=== PATIENT | male | born 1935 | race Caucasian/White ===

== ENCOUNTER 2016-10-31 12:00 | Observation (INO) | payer OTHER ==
--- NOTE | 2016-10-31 12:10 | CPEKG ---
Heart Rate: 62 RR Interval: 968 P-R Interval: 248 QRSD Interval: 94 QT Interval: 460 QTC Interval: 468 P [place]: 0 QRS [place]: 19 T Wave [place]: 42 EKG Severity - ABNORMAL ECG - EKG Impression: SINUS RHYTHM EKG Impression: LONG R-R WITH VENTRICULAR ESCAPE EKG Impression: FIRST DEGREE AV BLOCK Electronically Signed By: Pj Barrera 31-Oct-2016 13:26:43
--- NOTE | 2016-10-31 12:14 | EDPHY ---
H & P HPI/ROS: Chief Complaint: Chest tightness, fatigue HPI: 80-year-old male with history of coronary artery disease status post stenting several years ago presenting with episodes of chest tightness over the last week. Patient normally bicycles of [employer] weekly. Patient was riding last Friday when he notice some mild chest discomfort when he was doing his ride was able to complete it. Patient went for a long 12 mi hike outside of yesterday but had worsening chest tightness and fatigue and had to stop the hike. He presented to Dr. Christine, cardiology office today for evaluation is noted to be bradycardic with a 2nd degree heart block and was brought to the emergency department. Plan is for the patient to go to [facility] for catheterization. He is currently without complaint. No recent illness. No fevers or chills. No nausea or vomiting. ROS: 10 point Review of Systems is negative except as noted in the HPI. PMH: Coronary artery disease status post stenting Medications: Aspirin, atorvastatin, lisinopril Allergies: No known drug allergies Social History: No smoking, no alcohol, no recreational drug use Family History: non-contributory Physical Exam: Gen: Awake, Alert, No Distress HEENT: Nose: no rhinorrhea Eyes: PERRLA, EOMI Mouth: Moist mucosa Neck: Supple, no JVD Chest: nontender, lungs clear to auscultation Heart: S1, S2 normal, no murmur, bradycardic Abd: Soft, non-tender, no guarding Back: no CVA tenderness, no midline tenderness Ext: no edema, non-tender Skin: no rash Neuro: CN II-XII intact, Sensation grossly intact, Strength 5/5 in bilateral upper and lower extremities - Medical/Surgical History Hx Asthma: No Hx Chronic Respiratory Disease: No Hx Diabetes: No Hx Cardiac Disease: Yes Hx Renal Disease: No Hx Cirrhosis: No Hx Alcoholism: No Hx HIV/AIDS: No Hx Splenectomy or Spleen Trauma: No Other PMH: colonic polyps; coronary arthrosclerosis with stent 2005, elevated PSA, HTN, kidney stones, leukocytopenia, thrombophlebitis of saphenous right vein, appendectomy, - Social History Smoking Status: Never smoked Allergies/Adverse Reactions: levofloxacin [From Levaquin] Allergy (Verified 06/18/13 12:24) loratadine [From Claritin] Allergy (Verified 06/18/13 12:24) Home Medications: Medication Instructions Recorded Aspirin [Aspirin 81mg (OTC)] 81 mg PO DAILY 08/26/11 Clopidogrel Bisulfate [Plavix (RX)] 0 mg PO DAILY 08/26/11 Lisinopril [Zestril 5 mg] 0 mg PO DAILY 08/26/11 Co Q-10 06/18/13 Fish Oil 06/18/13 Niacin 06/18/13 VITAMIN C 06/18/13 Viagra 06/18/13 Atorvastatin Calcium [Lipitor 10 10 mg PO DAILY 05/27/14 mg (RX)] Medical Decision Making - Diagnostics EKG Interpretation: Sinus bradycardia, with second-degree heart block. No acute ST or T-wave changes. ED Course/Re-evaluation: Case discussed with Dr. Clark, cardiology. Patient will go to the quality assurance lab technician at [facility]. Patient will be admitted to a PCU bed. Patient shows no new ischemic changes on his ECG acutely at this time. Is bradycardic it but asymptomatic. Departure - Departure Disposition: [facility] Acute Clinical Impression: Bradycardia, Chest pain, Heart block Condition: Fair
[2016-10-31 12:20] LABS: % IMMATURE GRANULYOCYTES 0.2 % (0.0-1.1); ABSOLUTE IMMATURE GRANULOCYTES 0.01 10^3/uL (0.00-0.10); ADD DIFF? NO; ADD MORPH? NO; ADD SCAN? NO; ATYPICAL LYMPHOCYTE FLAG 10 (0-99); FRAGMENT RBC FLAG 0 (0-99); HEMATOCRIT 44.2 % (40.0-51.0); HEMOGLOBIN 15.2 g/dL (13.7-17.5); LEFT SHIFT FLG 0 (0-99); LIPEMIA HEMOLYSIS FLAG 90 (0-99); MEAN CELL HEMOGLOBIN 32.8 pg (27.9-34.1); MEAN CELL HEMOGLOBIN CONCENTR. 34.4 g/dL (32.4-36.7); MEAN CELL VOLUME 95.5 fL (81.5-99.8); MEAN PLATELET VOLUME 10.5 fL (8.7-11.7); PLATELET CLUMPS FLAG 0 (0-99); PLATELET COUNT 184 10^3/uL (150-400); RED BLOOD CELL COUNT 4.63 10^6/uL (4.40-6.38); RED CELL DISTRIBUTION WIDTH 13.3 % (11.5-15.2)
[2016-10-31 12:33] LABS: INR 0.91 (0.83-1.16)
[2016-10-31 12:38] LABS: ALANINE AMINOTRANSFERASE 35 IU/L (21-72); ALBUMIN 4.5 g/dL (3.5-5.0); ALKALINE PHOSPHATASE 73 IU/L (38-126); ANION GAP 15 mEq/L (8-16); ASPARTATE AMINOTRANSFERASE 41 IU/L (17-59); BILIRUBIN,TOTAL 0.6 mg/dL (0.1-1.4); CALCIUM 9.3 mg/dL (8.5-10.4); CARBON DIOXIDE 23 mEq/l (22-31); CHLORIDE 104 mEq/L (97-110); CREATININE 0.9 mg/dL (0.7-1.3); GLOMERULAR FILTRATION RATE > 60; GLUCOSE 97 mg/dL (70-100); POTASSIUM 4.2 mEq/L (3.5-5.2); SODIUM 142 mEq/L (134-144); TOTAL PROTEIN 7.6 g/dL (6.3-8.2)
[2016-10-31 12:48] LABS: TROPONIN I 0.014 ng/mL (0-0.034)
[2016-10-31] MEDS ORDERED: MIDAZOLAM 2 MG/2 ML VIAL ONE ×2 (13:09→14:53)
[2016-10-31] MEDS ORDERED: LIDOCAINE 1% 300 MG/30 ML SDV ONE (13:09)
[2016-10-31] MEDS ORDERED: fentaNYL 100 MCG/2 ML INJ ONE ×2 (13:09→14:53)
[2016-10-31] MEDS ORDERED: HEPARIN 10,000 UNIT/10 ML MDV ONE (13:10)
[2016-10-31] MEDS ORDERED: VERAPAMIL 5 MG/2 ML VIAL ONE (13:10)
[2016-10-31] MEDS ORDERED: IOPAMIDOL (ISOVUE-370) 150 ML BTL IV ONE ×3 (13:10→15:24)
[2016-10-31] MEDS ORDERED: diphenhydrAMINE 25 MG CAP PO ONE ×2 (13:11→13:41)
[2016-10-31] MEDS ORDERED: FAMOTIDINE 20 MG TAB PO ONE (13:11)
[2016-10-31] MEDS ORDERED: NS 1,000 ML IV ONE (13:11)
[2016-10-31] MEDS ORDERED: ASPIRIN EC 325 MG TAB PO ONE ×2 (13:11→13:42)
[2016-10-31] MEDS ORDERED: DIAZEPAM 5 MG TAB PO ONE (13:11)
[2016-10-31] MEDS ORDERED: FAMOTIDINE 20 MG TAB ONE (13:41)
[2016-10-31] MEDS ORDERED: DIAZEPAM 5 MG TAB ONE (13:42)
[2016-10-31] MEDS ORDERED: BIVALIRUDIN 250 MG/5 ML VIAL IV ONE (14:18)
[2016-10-31] MEDS ORDERED: PRASUGREL HCL 10 MG TAB ONE (15:29)
[2016-10-31] MEDS ORDERED: ONDANSETRON 4 MG/2 ML VIAL IVP PRN (15:52)
[2016-10-31] MEDS ORDERED: LORazepam 2 MG/ML INJ IVP PRN (15:52)
[2016-10-31] MEDS ORDERED: OXYCODONE/APAP 5/325 TAB PO PRN (15:52)
[2016-10-31] MEDS ORDERED: TEMAZEPAM 15 MG CAP PO PRN (15:52)
[2016-10-31] MEDS ORDERED: NITROGLYCERIN 0.4 MG BTL SL PRN (15:52)
[2016-10-31] MEDS ORDERED: PRASUGREL HCL 10 MG TAB PO ONE (15:52)
[2016-10-31] MEDS ORDERED: HYDROCODONE/APAP 5/325 TAB PO PRN (15:52)
[2016-10-31] MEDS ORDERED: ATROPINE SULFATE 1 MG/10 ML SYR IVP PRN (15:52)
--- NOTE | 2016-10-31 16:03 | PDDXCAT ---
Diagnostic Cath Note - . 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 Subtotaled in mid section LCX: Mild nonobstructive atherosclerosis. RCA: Dominant: Mild luminal irregularities EDP: 12 mm of mercury LVEF: 65 percent Wall motion: None Complications: None Estimated blood loss: <100ml Closure method: Angioseal Assessment: Acute coronary syndrome with subtotal stenosis of the mid LAD and widely patent proximal stent. Normal left ventricular systolic function without regional wall motion abnormalities. Normal filling pressures. Plan: Urgent PCI of the LAD. Intervention: After reviewing diagnostic angiograms it was elected to proceed with urgent PCI. Patient was anticoagulated with Angiomax. Sheath was upsized to a 7 Australian. Initially attempts at intubated left main coronary with a 7 Australian JL 4.5 guiding catheter were made but failed. We upsized to a 7 Australian 3.5 Q. this allowed intubation of the left main coronary at an acute angle. Using a 0.014 luge wire the LAD stenosis was crossed and the wire placed in the distal vessel. The lesion was pre-dilated with a 2 mm balloon. Repeat angiograms revealed dinesh grade 3 flow. Attempts at crossing with a 2.5 by 24 mm synergy stent were made but failed. The wire and stent were prolapsed out of the coronary. At this point was elected to upsize the guide to a 7 Australian Q 4.0 guide. This fit better in the coronary. Using a 0.014 wiggle wire the LAD stenosis was crossed. Attempts at crossing the lesion with the stent again was attempted but failed. A 6 Australian GuideLiner was then used. Again the stent would not go in the entire system prolapsed out of the coronary. At this point time was elected to upsize to a 7 Australian Q 4.5 guiding catheter. This fit coaxial E in the left main coronary. Using is 0.014 luge wire the LAD stenosis was crossed. A 0.014 mailman wire was then used as a bryan. A 2.5 x 8 mm synergy stent was then placed on the wire. It did cross the proximal segment was placed at the culprit lesion. It was deployed using a single inflation. The Mailman wire was withdrawn. It then was used to reach cross through the stent. A 2nd 2.5 x 8 mm synergy stent was placed distally and deployed using a single inflation. The Mailman wire was withdrawn and then again prolapsed through the stents and a 2.5 x 16 mm synergy stent bridged the distance between the 2 stents. As it went in there was a hang up at the proximal stent edge. Orthogonal angiograms revealed a limited dissection. A 3.0 x 8 mm stent was placed proximally again using a bryan wire technique. Final orthogonal angiograms revealed DINESH grade 3 flow with resolution of dissection. Conclusions: Successful PCI and stenting of the LAD in the setting of acute coronary syndrome. Patient be continued on dual antiplatelet therapy for 1 year. Continue aggressive secondary prevention. During the course of the examination patient was in intermittent complete heart block. We will observe him on telemetry. Patient may need a pacemaker. Beta- meghan is contraindicated. Patient Problems: Problems Problem Status Onset Bradycardia Acute Chest pain Acute Heart block Acute
--- NOTE | 2016-10-31 16:06 | CPEKG ---
Heart Rate: 50 RR Interval: 1200 P-R Interval: 322 QRSD Interval: 100 QT Interval: 500 QTC Interval: 456 P [place]: 0 QRS [place]: 29 T Wave [place]: 56 EKG Severity - ABNORMAL ECG - EKG Impression: SINUS BRADYCARDIA EKG Impression: SINUS PAUSE/ARREST W/ SUPRAVENTRICULAR ESCAPE EKG Impression: FIRST DEGREE AV BLOCK EKG Impression: THERE ARE SALVOS OF SECOND DEGREE AVB (TYPE II) Electronically Signed By: Patricio Christine 31-Oct-2016 20:52:18
[2016-10-31] MEDS ORDERED: *HTN PROTOCOL*NITROGLYCERIN/DEXTR IV SCH (17:00)
[2016-10-31 20:01] LABS: CREATINE KINASE-MB FRACTION 1.79 ng/mL (0-3.19); TROPONIN I 0.038 ng/mL (0-0.034)
[2016-10-31 21:37] LABS: CREATINE KINASE-MB FRACTION 1.92 ng/mL (0-4.55); TROPONIN I 0.025 ng/mL (0-0.034)
[2016-10-31 22:23] LABS: CREATINE KINASE-MB FRACTION 1.68 ng/mL (0-3.19); TROPONIN I 0.079 ng/mL (0-0.034)
--- NOTE | 2016-11-01 00:40 | CPEKG ---
Heart Rate: 43 RR Interval: 1395 P-R Interval: 302 QRSD Interval: 90 QT Interval: 512 QTC Interval: 433 P [place]: -35 QRS [place]: 66 T Wave [place]: 70 EKG Severity - ABNORMAL ECG - EKG Impression: SINUS BRADYCARDIA, WENKEBACH PERIODICITY NOTED EKG Impression: ABERRANT COMPLEX, POSSIBLY SUPRAVENTRICULAR Electronically Signed By: Derick Sher 01-Nov-2016 08:00:22
[2016-11-01 02:15] LABS: CREATINE KINASE-MB FRACTION 1.77 ng/mL (0-3.19); TROPONIN I 0.131 ng/mL (0-0.034)
[2016-11-01 07:51] LABS: % IMMATURE GRANULYOCYTES 0.2 % (0.0-1.1); ABSOLUTE IMMATURE GRANULOCYTES 0.01 10^3/uL (0.00-0.10); ADD DIFF? NO; ADD MORPH? NO; ADD SCAN? NO; ATYPICAL LYMPHOCYTE FLAG 0 (0-99); FRAGMENT RBC FLAG 0 (0-99); HEMATOCRIT 39.1 % (40.0-51.0); HEMOGLOBIN 13.7 g/dL (13.7-17.5); LEFT SHIFT FLG 0 (0-99); LIPEMIA HEMOLYSIS FLAG 90 (0-99); MEAN CELL VOLUME 94.2 fL (81.5-99.8); MEAN PLATELET VOLUME 10.7 fL (8.7-11.7); PLATELET CLUMPS FLAG 0 (0-99); PLATELET COUNT 146 10^3/uL (150-400); RED BLOOD CELL COUNT 4.15 10^6/uL (4.40-6.38); RED CELL DISTRIBUTION WIDTH 13.2 % (11.5-15.2)
[2016-11-01 08:06] VITALS: BP 149/98; PULSE 52; RESP 20; TEMP 98.2; O2SAT 98
[2016-11-01 08:10] LABS: ALBUMIN 3.9 g/dL (3.5-5.0); ANION GAP 9 mEq/L (8-16); ASPARTATE AMINOTRANSFERASE 36 IU/L (17-59); BILIRUBIN,TOTAL 1.1 mg/dL (0.1-1.4); CARBON DIOXIDE 22 mEq/l (22-31); CHLORIDE 109 mEq/L (97-110); CHOLESTEROL 157 mg/dL (140-220); CHOLESTEROL/HDL RATIO 2.66 RATIO (1.00-4.97); CREATININE 0.9 mg/dL (0.7-1.3); GLOMERULAR FILTRATION RATE > 60; GLUCOSE 91 mg/dL (70-100); HIGH DENSITY LIPOPROTEIN 59 mg/dL (40-65); LACTATE DEHYDROGENASE 472 IU/L (313-618); LDL/HDL RATIO 1.39 RATIO (1.00-3.64); LOW DENSITY LIPOPROTEIN 82 mg/dL (80-100); MAGNESIUM 2.1 mg/dL (1.6-2.3); NON-HIGH DENSITY LIPOPROTEIN 98 mg/dL (90-129); POTASSIUM 4.5 mEq/L (3.5-5.2); SODIUM 140 mEq/L (134-144); TRIGLYCERIDE 83 mg/dL (40-150); VERY LOW DENSITY LIPOPROTEINS 16 mg/dL (8-25)
[2016-11-01 08:21] LABS: CREATINE KINASE-MB FRACTION 2.03 ng/mL (0-3.19); TROPONIN I 0.302 ng/mL (0-0.034)
[2016-11-01] MEDS ORDERED: BACITRACIN IRRIGATION/NS 50,000 UNITS/1,000 ML BTL IRR ONE (08:36)
[2016-11-01] MEDS ORDERED: diphenhydrAMINE 25 MG CAP PO ONE (08:36)
[2016-11-01] MEDS ORDERED: DIAZEPAM 5 MG TAB PO ONE (08:36)
[2016-11-01] MEDS ORDERED: NS 1,000 ML IV SCH (08:45)
[2016-11-01] MEDS ORDERED: ceFAZolin 2 GM/DEXTROSE 100 ML IV ONE (08:52)
[2016-11-01] MEDS ORDERED: PRASUGREL HCL 10 MG TAB PO SCH (09:00)
[2016-11-01] MEDS ORDERED: ASPIRIN EC 325 MG TAB PO SCH (09:00)
[2016-11-01] MEDS ORDERED: LISINOPRIL 20 MG TAB PO SCH (09:00)
[2016-11-01] MEDS ORDERED: ATORVASTATIN CALCIUM 40 MG TAB PO SCH (09:00)
[2016-11-01] MEDS ORDERED: LISINOPRIL 20 MG PO SCH (09:00)
--- NOTE | 2016-11-01 09:00 | CPEKG ---
Heart Rate: 47 RR Interval: 1277 P-R Interval: 267 QRSD Interval: 92 QT Interval: 475 QTC Interval: 420 P [place]: 0 QRS [place]: -12 T Wave [place]: 16 EKG Severity - ABNORMAL ECG - EKG Impression: BRADYCARDIA WITH IRREGULAR RATE 36-64 EKG Impression: FIRST DEGREE AV BLOCK EKG Impression: BORDERLINE T ABNORMALITIES, INFERIOR LEADS EKG Impression: THERE IS SECOND DEGREE TYPE II AVB ALSO NOTED IN THIS ECG Electronically Signed By: Patricio Christine 01-Nov-2016 10:11:53
[2016-11-01 10:42] LABS: HEMOGLOBIN A1C 5.6 % (4.0-6.0)
--- NOTE | 2016-11-01 11:08 | PDDCSUM ---
Discharge Summary Discharge Summary: Date of admission 10/31/2016, discharge date 11/01/2016 Admission diagnosis acute coronary syndrome. Discharge diagnosis same status post PCI and stenting of the LAD. Limited abscess below the left mandible. Hyperlipidemia. 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 Procedures done during this hospitalization left heart catheterization with stenting of the LAD. Consultation: Dr. Hanna Nichols for removal of limited abscess below the mandible. Medications: Please see attached sheet. Follow-up Eduardo 1 week, referral to cardiac rehabilitation. Hospital course: Patient was admitted to the hospital from [facility], patient was diagnosed with an acute coronary syndrome by my partner Patricio Christine. He is brought to the cardiac catheterization February is found have critical stenosis of the LAD. He underwent complex PCI and stenting. Procedure was notable for intermittent Wenckebach with high-degree AV block. Plan was to have a pacemaker inserted. Prior to insertion patient reported a mass below the mandible. This has intermittent exudate. Consultation by surgery was obtained. Plan is for this to be removed and treated prior to implantation of a permanent device. The patient is asymptomatic without syncope or near syncope. On the day of discharge patient's heart rate was 40, blood pressure 110/70 HEENT was significant for mass below the mandible. There is a marsupialized portion with crossed. I could not express any exudate. Chest was clear. Cardiac exam showed regular rate and rhythm. Puncture site was healing well without erythema or edema. Questions were answered with the patient is family. Will plan a follow up next week. Dr. Garcia will schedule further treatment for this mass. Clinical follow -up.
--- NOTE | 2016-11-05 11:37 | GCON ---
[f rep st] CONSULTATION DATE OF CONSULTATION: 11/01/2016 REFERRING PHYSICIAN: Beltran Clark MD REQUESTING PHYSICIAN: Beltran Clark MD CHIEF COMPLAINT: Left mandibular mass. HISTORY OF PRESENT ILLNESS: The patient is an 80-year-old man who was admitted due to chest tightne ss, and a stent was placed. He is on Brilinta and aspirin. He also has known second-degree heart b lock, and is being evaluated for pacemaker placement. On physical exam, Dr. Clark noticed a lesi on on his left jaw. The patient reports that it occasionally drains. He had it biopsied by a derma tologist, and it was negative for malignancy. It does not bother him. Due to the risk of infection to pacemaker, Dr. Clark asked me to evaluate it. PAST MEDICAL HISTORY: Coronary artery disease, hypertension, hyperlipidemia. MEDICATIONS: Include Brilinta, aspirin, atorvastatin, lisinopril. ALLERGIES: No known drug allergies. SOCIAL HISTORY: He is really active. He bicycles to [place] weekly. He denies alcohol, tobacco or recreational drug use. 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 FAMILY HISTORY: Noncontributory. REVIEW OF SYSTEMS: 10-point review of systems negative except per HPI. PHYSICAL EXAMINATION: GENERAL: Pleasant, well nourished, appears younger than stated age, sitting up in bed. VITAL SIGNS: 36.8, 52, 149/98, 20, 98% on 1 L. HEENT: Normocephalic. No gross hearin g deficits. Mucous membranes moist. Pupils equal and round. No scleral icterus. There is a lesio n on his left mandible that does not appear to be acutely inflamed or infected. There is no active drainage. LUNGS: Clear to auscultation bilaterally. No increased work of breathing. CARDIAC: Br adycardic. NEURO: Grossly intact. SKIN: Warm and dry. PSYCH: Mood and affect normal. IMPRESSION AND PLAN: The patient is an 80-year-old man with a lesion to his mandible. I believe th is represents an epidermal inclusion cyst. We will request the records from the on site coordinator and r eview them. I have discussed the case with Dr. Clark, and I do not believe that this is a huge r isk of creating infection with a pacemaker, however, since the pacemaker is permanent and risk with revision can be prevented, we would like to proceed with excising the lesion on his jaw first, since the pacemaker is not emergent. We will do this in the main operating room. He will be on Brilinta and aspirin. I have advised him that I would like him not to play his violin for at least a week a fter excision. We know that there may be a risk of infection and that the wound will have to be pac ked. There is certainly a small risk of bleeding. We will send the specimen to Pathology. We will request records from Dermatology. I have discussed the case in detail with Dr. Clark. Approximately 20 minutes was spent coordinating the care and [id number]. /[id number]/MODL
== END 2016-11-01 12:04 | disposition home or self-care (01) ==
LOC: CED 12:00 → FCATH 12:43 → INTOOBSV 12:44 → F2W 12:44
PROVIDERS: ADMIT Internal Medicine Interventional Cardiology; ATTEND Internal Medicine Interventional Cardiology
PROC: 4A023N7 Measurement of Cardiac Sampling and Pressure, Left Heart, Percutaneous Approach (ICD-10-PCS; principal; 2016-10-31)
PROC: 027035Z Dilation of Coronary Artery, One Artery with Two Drug-eluting Intraluminal Devices, Percutaneous Approach (ICD-10-PCS; principal; 2016-10-31)
PROC: B2111ZZ Fluoroscopy of Multiple Coronary Arteries using Low Osmolar Contrast (ICD-10-PCS; principal; 2016-10-31)
PROC: B2151ZZ Fluoroscopy of Left Heart using Low Osmolar Contrast (ICD-10-PCS; principal; 2016-10-31)
DX: I24.9 Acute ischemic heart disease, unspecified (principal); I44.1 Atrioventricular block, second degree; R00.1 Bradycardia, unspecified; M27.2 Inflammatory conditions of jaws; I25.10 Atherosclerotic heart disease of native coronary artery without angina pectoris; E78.5 Hyperlipidemia, unspecified; I10 Essential (primary) hypertension; Z87.442 Personal history of urinary calculi; Z95.5 Presence of coronary angioplasty implant and graft
CPT/HCPCS: 71010; 93005; 93458; 99285; C1725; C1769; C1874; C1887; C9600; G0378; J0583; J1644; J2250; J3010; Q9967; 80053-PO; 84484-PO; 85025-PO; 85610-PO; 85730-PO; J0461; J0690

== ENCOUNTER → 2016-10-31 | Outpatient (CLI) | payer OTHER | LOC: BHCLAF 11:30 | PROVIDERS: ATTEND Internal Medicine Cardiovascular Disease | DX: I25.10 Atherosclerotic heart disease of native coronary artery without angina pectoris (principal); I10 Essential (primary) hypertension; E78.5 Hyperlipidemia, unspecified; R00.1 Bradycardia, unspecified | CPT/HCPCS: 93005-PO ==

== ENCOUNTER 2016-11-07 06:00 | Day surgery (SDC) | payer OTHER ==
[2016-11-07] MEDS ORDERED: BUPIVACAINE 0.5% 30 ML SDV ONE (06:51)
[2016-11-07] MEDS ORDERED: PRASUGREL HCL 10 MG TAB PO ONE (07:00)
[2016-11-07] MEDS ORDERED: ASPIRIN 325 MG TAB PO ONE (07:00)
[2016-11-07] MEDS ORDERED: LIDOCAINE 1% 5 ML SDV ONE (07:03)
[2016-11-07] MEDS ORDERED: MIDAZOLAM 2 MG/2 ML VIAL ONE (07:12)
[2016-11-07] MEDS ORDERED: LIDOCAINE 2% 100 MG/5 ML SYR ONE (07:16)
[2016-11-07] MEDS ORDERED: PROPOFOL/EMULSION 500 MG/50 ML BOTTLE IV ONE (07:16)
[2016-11-07] MEDS ORDERED: fentaNYL 100 MCG/2 ML INJ ONE (07:16)
[2016-11-07] MEDS ORDERED: CEFAZOLIN 2 GM/DEXTROSE/100 ML BAG IV ONE (07:19)
[2016-11-07] MEDS ORDERED: LIDOCAINE 1% 300 MG/30 ML SDV ONE (07:24)
[2016-11-07] MEDS ORDERED: ceFAZolin 2 GM/DEXTROSE 100 ML IV ONE (07:30)
[2016-11-07] MEDS ORDERED: LR 1,000 ML IV ONE (08:21)
[2016-11-07] MEDS ORDERED: LIDOCAINE 1% 5 ML SDV ID PRN (08:21)
--- NOTE | 2016-11-07 09:04 | GOP ---
[f rep st] OPERATIVE REPORT DATE OF OPERATION: 11/07/2016 SURGEON: Hanna Nichols MD ANESTHESIA: Dr. Don Monterroso/monitored anesthesia care with IV sedation. PREOPERATIVE DIAGNOSIS: Cyst, left mandible. POSTOPERATIVE DIAGNOSIS: Cyst, left mandible. PROCEDURE PERFORMED: Excision of 2 cm cyst on left mandible. FINDINGS: Cyst on parotid gland. SPECIMENS: Cyst. ESTIMATED BLOOD LOSS: 10 cc. INDICATIONS: The patient is an 80-year-old man, who initially had an ingrown hair on his left raza ble. 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 He has had this biopsied, and not malignant. He needs a pacemaker for s econd-degree heart block, and concern was that this was draining and wanted this closed prior to golden cing pacemaker. DESCRIPTION OF PROCEDURE: The patient was brought into the operating room, placed supine on the tab le, and monitored anesthesia care with IV sedation was performed. His left neck was prepped and scottie ped in the usual sterile fashion. I infiltrated the area with 8 cc of 0.5% Marcaine mixed with 1% l idocaine, and made an ellipse around the cystic lesion. I dissected down through the subcutaneous t issues. It appeared to be attached in the parotid gland. I then had my colleague, Dr. Andujar, to c ome in to look at the dissection. I believe I was very superficial and not in danger of damaging th e marginal mandibular nerve or the facial nerve. I excised a small amount of tissue on the parotid sharply. Hemostasis was achieved. The wound was closed with 3-0 nylon. Antibiotic ointment and a sterile dressing were applied. He was awakened in the operating room, transferred to PACU in stable condition. /[id number]/MODL
== END 2016-11-07 09:35 | disposition home or self-care (01) ==
LOC: FSGY 06:00 → EDSTATUS 07:15 → FSGY 09:35 → PREOBSVTOIN 10:31
PROVIDERS: ATTEND Surgery
PROC: 0CB90ZX Excision of Left Parotid Gland, Open Approach, Diagnostic (ICD-10-PCS; principal; 2016-11-07 07:15)
DX: K11.6 Mucocele of salivary gland (principal); I44.1 Atrioventricular block, second degree
CPT/HCPCS: J0690; J2001; J2250; J2704; J3010

== ENCOUNTER → 2016-11-12 | Outpatient (CLI) | payer OTHER | LOC: BHFA 11:30 | PROVIDERS: ATTEND Internal Medicine Interventional Cardiology | DX: I44.2 Atrioventricular block, complete (principal) ==

== ENCOUNTER 2017-03-25 06:28 | Observation (INO) | payer OTHER ==
[2017-03-25] MEDS ORDERED: ceFAZolin 2 GM/SWFI 2 GM/20 ML SYR IVP ONE (06:31)
[2017-03-25] MEDS ORDERED: BACITRACIN IRRIGATION/NS 50,000 UNITS/1,000 ML BTL IRR ONE (06:31)
[2017-03-25] MEDS ORDERED: NS 1,000 ML IV ONE (06:31)
[2017-03-25] MEDS ORDERED: DIAZEPAM 5 MG TAB PO ONE (06:31)
[2017-03-25] MEDS ORDERED: diphenhydrAMINE 25 MG CAP PO ONE (06:31)
--- NOTE | 2017-03-25 06:47 | CPEKG ---
Heart Rate: 37 RR Interval: 1622 QRSD Interval: 98 QT Interval: 488 QTC Interval: 383 QRS [place]: -9 T Wave [place]: 68 EKG Severity - ABNORMAL ECG - EKG Impression: ATRIAL FIBRILLATION --NEW SINCE NOVEMBER 01, 2016 EKG Impression: NONSPECIFIC T ABNORMALITIES, LATERAL LEADS Electronically Signed By: Donato Calix 25-Mar-2017 11:59:38
[2017-03-25 07:01] LABS: % IMMATURE GRANULYOCYTES 0.2 % (0.0-1.1); ABSOLUTE IMMATURE GRANULOCYTES 0.01 10^3/uL (0.00-0.10); ADD DIFF? NO; ADD MORPH? NO; ADD SCAN? NO; ATYPICAL LYMPHOCYTE FLAG 20 (0-99); FRAGMENT RBC FLAG 0 (0-99); HEMATOCRIT 43.2 % (40.0-51.0); HEMOGLOBIN 15.3 g/dL (13.7-17.5); LEFT SHIFT FLG 0 (0-99); LIPEMIA HEMOLYSIS FLAG 90 (0-99); MEAN CELL HEMOGLOBIN 33.4 pg (27.9-34.1); MEAN CELL HEMOGLOBIN CONCENTR. 35.4 g/dL (32.4-36.7); MEAN CELL VOLUME 94.3 fL (81.5-99.8); MEAN PLATELET VOLUME 10.3 fL (8.7-11.7); PLATELET CLUMPS FLAG 0 (0-99); PLATELET COUNT 172 10^3/uL (150-400); RED BLOOD CELL COUNT 4.58 10^6/uL (4.40-6.38)
[2017-03-25 07:08] LABS: INR 0.99 (0.83-1.16)
[2017-03-25] MEDS ORDERED: ceFAZolin 2 GM in D5W 100 ML IV ONE (07:30)
[2017-03-25 07:43] LABS: ANION GAP 18 mEq/L (8-16); CALCIUM 9.6 mg/dL (8.5-10.4); CARBON DIOXIDE 25 mEq/l (22-31); CHLORIDE 100 mEq/L (97-110); CREATININE 0.9 mg/dL (0.7-1.3); GLOMERULAR FILTRATION RATE > 60; GLUCOSE 84 mg/dL (70-100); POTASSIUM 4.2 mEq/L (3.5-5.2); SODIUM 143 mEq/L (134-144)
--- NOTE | 2017-03-25 07:56 | PDPROPOC ---
Sedation Plan of Care Sedation Plan of Care: vital signs stable, mental status noted, patient educated of risks, benefits, alternatives, patient can tolerate sedation ASA Classification: ASA 2 Planned drugs: fentanyl, midazolam Mallampati Score: Class 1 Mallampati Reference Image: Patient passed 3-3-2 rule?: Yes
--- NOTE | 2017-03-25 07:56 | PDHPUP ---
History & Physical Update H&P update statement: This history and physical update is based on an assessment of the patient which was completed after admission or registration (within 24 hours), but prior to the surgery/procedure. H&P update: H&P reviewed & patient examined, no change in patient's condition since H&P completed (Discussed site, Plays violin. Left side device with lower position.)
[2017-03-25] MEDS ORDERED: LIDOCAINE 1% 300 MG/30 ML SDV ONE (08:17)
[2017-03-25] MEDS ORDERED: MIDAZOLAM 2 MG/2 ML VIAL ONE (08:17)
[2017-03-25] MEDS ORDERED: BUPIVACAINE 0.5% 30 ML SDV ONE (08:17)
[2017-03-25] MEDS ORDERED: fentaNYL 100 MCG/2 ML INJ ONE (08:17)
[2017-03-25] MEDS ORDERED: LIDO/EPI 1% **for epidural** 30 ML SDV ONE (08:17)
[2017-03-25] MEDS ORDERED: IOPAMIDOL (ISOVUE-300) 150 ML BTL ONE (08:18)
--- NOTE | 2017-03-25 09:22 | PDCTREPORT ---
Cardiothoracic Procedure Rpt Cardiothoracic Procedure Report: Procedure: Implantation of dual-chamber pacemaker. Indications: Fatigue with second-degree AV block. After obtaining informed consent patient brought to the cardiac catheterization lab. The left subclavian fossa was sterilely prepped and draped. Subclavian venogram was performed from the left side revealing widely patent vein. Using a 10 blade a 2 cm incision was made below the clavicle. Using a combination of sharp and blunt dissection pacemaker pocket was created. Hemostasis was achieved. Bacitracin soaked sponge was placed in the pocket. Using an 18 gauge percutaneous needle guide wires were advanced in the right heart x2. Using 6 Argentine safety she has, leads were advanced into the RV apex and right atrial appendage. Sheaths were torn away the leads were secured to the fascia after confirming appropriate sensitivities and thresholds. The right ventricular lead required repositioning. Bacitracin soaked sponge was removed from the pocket. It was copiously irrigated. Generator was delivered to the field. After confirming serial numbers, leads were attached to the generator. Set screws were tightened per industry standards. The system was coiled into the pocket. Using a 0 silk suture the device was secured to the fascia to prevent migration. Pacemaker pocket was closed using 2 Vicryl. Skin subcutaneous layer was closed using 3 0 Vicryl. Strata Fix was used to close the skin. For complete details of the procedure please see attached computer report. Pressure dressing was applied the patient is taken to recovery. Conclusions: Successful implantation of dual-chamber permanent pacemaker for second-degree AV block. The generator is a model number p.m. 2272, serial 7. [id number]. Right atrial lead is a model 2. 088 PC/46 serial number [id number] Right ventricular lead is a model 2. 088 PC 52 serial number [id number]. This is a MRI compatible device. Right atrial sensing was 5.2 mV with an impedance of 458 Ohms. Threshold was 0.5 volts with a pulse with 0.5 milliseconds. Right ventricular sensing was 9.1 mV with an impedance of 836 Ohms threshold was 0.6 volts with a pulse with a 0.5 milliseconds. Conclusions successful implantation of a DDDR pacer. This is an Assurity S URI TY MRI device. Patient Problems: Problems Problem Status Onset Bradycardia Acute Chest pain Acute Heart block Acute
--- NOTE | 2017-03-25 10:25 | CPEKG ---
Heart Rate: 92 RR Interval: 652 QRSD Interval: 126 QT Interval: 396 QTC Interval: 490 P [place]: 0 QRS [place]: -44 T Wave [place]: 126 EKG Severity - ABNORMAL ECG - EKG Impression: A-V DUAL-PACED COMPLEXES W/ SOME INHIBITION -- New since March 25, 2017, 6:45 Electronically Signed By: Donato Calix 25-Mar-2017 11:57:08
[2017-03-25] MEDS ORDERED: ACETAMINOPHEN 325 MG TAB ONE (15:05)
[2017-03-25] MEDS ORDERED: ACETAMINOPHEN 325 MG TAB PO PRN ×2 (15:24→20:04)
[2017-03-25] MEDS ORDERED: ASPIRIN 81 MG CHEWABLE TAB PO SCH ×2 (18:43→21:00)
[2017-03-25] MEDS ORDERED: CLOPIDOGREL BISULFATE 75 MG TAB PO SCH (19:00)
[2017-03-25] MEDS ORDERED: ONDANSETRON 4 MG/2 ML VIAL IVP PRN (20:04)
--- NOTE | 2017-03-25 20:49 | GHP ---
[f rep st] HISTORY AND PHYSICAL DATE OF ADMISSION: 03/25/2017 CHIEF COMPLAINT: Left-sided weakness. HISTORY: The patient is an 81-year-old male, who had a pacemaker placed by Dr. Clark this morning for second-degree heart block. He was being observed in CVC postprocedure and got up and was going to go home when suddenly he got very lightheaded and had a witnessed syncopal event. This was witnes sed by his nurse and his daughter. They got him back to the stretcher and noticed a significant left -sided facial droop as well as left leg and arm weakness that persisted about 5 minutes. An overhead stat stroke alert was called and by the time I arrived his neuro symptoms had all resolved. He was perhaps slightly less animated and mentally acute than he was earlier according to the nurse, but mos tly he had returned to normal. He has been holding his aspirin and Plavix for the last 2 days in pre paration for his pacemaker. He has otherwise recently been well without any complaints. PAST MEDICAL HISTORY: 1. Coronary artery disease, status post stent to the LAD, October 2016. 2. Second-degree heart block, status post pacemaker. 3. Hyperlipidemia. MEDICATIONS: Please see computer record for full detailed list. ALLERGIES: No known drug allergies. SOCIAL HISTORY: No smoking. He does drink daily a couple drinks. 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 He lives with his . He is very active at baseline, hiking couple times a week. REVIEW OF SYSTEMS: Complete review of systems obtained. Review of systems is negative regarding con stitutional, HEENT, GI, pulmonary, cardiovascular, , hematology, skin, musculoskeletal, endocrine, psych except for positives and negatives as noted in HPI. FAMILY HISTORY: Reviewed, noncontributory to presenting complaint. PHYSICAL EXAMINATION: GENERAL: Well-developed, well-nourished male, in no acute distress. VITAL SI GNS: Temp 36.6, pulse 69, blood pressure 129/86, saturating 99% on 3 L. EYES: Normal conjunctivae. Pupils react to light. ENT: Normal ears, nose. Hearing intact. Normal teeth. Oropharynx moist. NECK: Trachea midline. No thyromegaly. CHEST: Normal effort. LUNGS: Clear to auscultation bila terally. CARDIOVASCULAR: Regular rhythm. No murmur. No lower extremity edema. ABDOMEN: Soft, no ntender. No hepatosplenomegaly. SKIN: Warm, dry, intact. No rash. MUSCULOSKELETAL: No cyanosis or clubbing. Strength 5/5 upper and lower extremities. NEURO: Cranial nerves intact. Normal sensa tion to light touch. PSYCHIATRIC: Alert and oriented x3. Normal affect. Normal judgment. Normal memory. LABORATORY DATA: White count 4.22, hematocrit 43.2, platelets 172, sodium 143, potassium 4.2, chlori de 100, bicarb 25, BUN , creatinine 0.9, glucose 84. INR 0.99. Chest x-ray is negative. EKG pre pacemaker showed a second-degree heart block, post pacemaker showed paced rhythm. This case was discussed with Dr. Virgilio Valdez of Cardiology. He gave the green light to resume aspirin and Plavix this evening. ASSESSMENT/PLAN: 1. Transient ischemic attack. Patient has been holding his antiplatelets in preparation for pacemak er. I spoke with Dr. Valdez of Cardiology and he has cleared the patient to resume anti-platelet mounika tment tonight. CT scan of the head is negative for bleeding and CTA of the head and neck is negative for vascular stenosis. We will check an echocardiogram. We will check a lipid panel in the morning . We will put him on a transient ischemic attack protocol including Physical Therapy/Occupational Th erapy consultations in the morning. 2. Second-degree heart block, status post pacemaker. He has never previously had a documented histo ry of atrial fibrillation. Post pacemaker precautions to be instituted. 3. Coronary artery disease, status post recent stent to the left anterior descending in October 2016. For this indication he also requires ongoing Plavix administration. 4. Hyperlipidemia. He is on atorvastatin. We will recheck a lipid panel in the morning, with a goa l LDL of less than 70. COR STATUS: Full. ADMISSION STATUS: We will admit to observation as he might go home tomorrow depending clinical cours e. DEEP VENOUS THROMBOSIS PROPHYLAXIS: Given that we are restarting aspirin and Plavix so shortly after procedure, we will hold off on adding Lovenox as well. We will give him SCDs for DVT prophylaxis. /[id number]/MODL
[2017-03-25] MEDS ORDERED: LISINOPRIL 20 MG TAB PO SCH (21:00)
[2017-03-25] MEDS ORDERED: ATORVASTATIN CALCIUM 20 MG TAB PO SCH (21:00)
[2017-03-26 05:54] LABS: % IMMATURE GRANULYOCYTES 0.2 % (0.0-1.1); ABSOLUTE IMMATURE GRANULOCYTES 0.01 10^3/uL (0.00-0.10); ADD DIFF? NO; ADD MORPH? NO; ADD SCAN? NO; ATYPICAL LYMPHOCYTE FLAG 10 (0-99); FRAGMENT RBC FLAG 0 (0-99); HEMATOCRIT 42.8 % (40.0-51.0); HEMOGLOBIN 15.1 g/dL (13.7-17.5); LEFT SHIFT FLG 0 (0-99); LIPEMIA HEMOLYSIS FLAG 90 (0-99); MEAN CELL HEMOGLOBIN 33.3 pg (27.9-34.1); MEAN CELL HEMOGLOBIN CONCENTR. 35.3 g/dL (32.4-36.7); MEAN CELL VOLUME 94.5 fL (81.5-99.8); MEAN PLATELET VOLUME 10.7 fL (8.7-11.7); PLATELET CLUMPS FLAG 0 (0-99); PLATELET COUNT 152 10^3/uL (150-400); RED BLOOD CELL COUNT 4.53 10^6/uL (4.40-6.38); RED CELL DISTRIBUTION WIDTH 12.9 % (11.5-15.2)
[2017-03-26 05:57] LABS: ANION GAP 11 mEq/L (8-16); CALCIUM 9.1 mg/dL (8.5-10.4); CARBON DIOXIDE 22 mEq/l (22-31); CHLORIDE 107 mEq/L (97-110); CHOLESTEROL 173 mg/dL (140-220); CHOLESTEROL/HDL RATIO 2.98 RATIO (1.00-4.97); CREATININE 0.8 mg/dL (0.7-1.3); GLOMERULAR FILTRATION RATE > 60; GLUCOSE 101 mg/dL (70-100); HIGH DENSITY LIPOPROTEIN 58 mg/dL (40-65); LDL/HDL RATIO 1.66 RATIO (1.00-3.64); LOW DENSITY LIPOPROTEIN 96 mg/dL (80-100); NON-HIGH DENSITY LIPOPROTEIN 115 mg/dL (90-129); SODIUM 140 mEq/L (134-144); TRIGLYCERIDE 97 mg/dL (40-150); VERY LOW DENSITY LIPOPROTEINS 19 mg/dL (8-25)
[2017-03-26 06:07] LABS: TROPONIN I 0.335 ng/mL (0.000-0.034)
[2017-03-26 07:51] VITALS: RESP 16; TEMP 97.9
--- NOTE | 2017-03-26 10:18 | HOSPPROG ---
Hospitalist Progress Note Assessment/Plan: DIAGNOSES: -syncope with some brief L side weakness upon awakening, 03/25 (occurred hours after pacer placement) -s/p pacer yesterday -carotid atherosclerosis 60% at bilateral bulbs (known CAD) I examined and discussed events today with Estrella Conti Review of pacer/monitors did not show tachyarrythmia at time of event At this time I feel he likely had a syncope with resultant transient post ictal weakness. However given age would respond as if this were TIA in terms of preventive care. He clearly needs to continue platelet inhibitors and lipid/BP/sugar management, good exercise and diet as he has been doing I don't think his carotid disease warrants revasc attempts but should be followed and treated if progresses. There is no indication for anticoagulation I feel he can be DC'd home if cardiology feels he can go. 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: Paced with occasional PVC Exam: alert oriented Neurologic exam with no cranial nerve abnormalities, focal weakness, speech or language difficulties skin warm dry color ok resps not labored lungs clear BSs heart regular abd soft nondistended nontender, bowel sounds present limbs warm, no edema iv site ok Objective: Vital Signs Temp Pulse Resp BP Pulse Ox 36.6 C 64 16 111/86 H 96 03/26/17 07:42 03/26/17 07:42 03/26/17 07:42 03/26/17 07:42 03/26/17 07:42 Laboratory Results 03/26/17 05:30 03/26/17 05:30 03/25/17 03/26/17 03/27/17 06:59 06:59 06:59 Intake Total 400 Output Total 240 Balance 160 PT 13.0 SEC (12.0-15.0) 03/25/17 06:54 INR 0.99 (0.83-1.16) 03/25/17 06:54 ICD10 Worksheet Patient Problems: Problems Problem Status Onset Bradycardia Acute Chest pain Acute Heart block Acute
--- NOTE | 2017-03-26 12:46 | GDS ---
[f rep st] DISCHARGE SUMMARY PRIMARY ELEMENTARY SUPERVISOR: Beltran Calrk MD. DISCHARGE DIAGNOSES: 1. Second-degree heart block, status post dual-chamber [employer] pacemaker. 2. History of coronary artery disease. 3. History of hyperlipidemia. 4. Vasovagal event versus transient ischemic attack. 5. Moderate bilateral carotid disease. 6. Hypertension. HOSPITAL COURSE: For detailed H and P, please see prior dictation. Briefly, the patient is an 81-ye ar-old male who was identified to have profound second-degree AV block with bradycardia and heart rat es in the 20s on Holter monitor. He was complaining of progressive fatigue and an inability to exerc ise and therefore decided to proceed with an elective dual-chamber pacemaker. This was done by Dr. Christi Clark on 03/26/2017. He had a [employer]obe dual-chamber pacemaker placed. The procedure was un complicated and the patient was actually scheduled to go home later that day. Upon standing to leave , he became significantly lightheaded and experienced a true syncopal event. This was witnessed by andrew victor his nurse and daughter. When he came to, he had significant left-sided facial droop and left arm and leg weakness, which persisted for 5 minutes. A stroke alert was activated and Dr. Wellington evaluat ed the patient. By the time she reached the patient, his symptoms had resolved. A head CT, as well as head and neck CTA, were ordered. He was found to have moderate bilateral carotid disease of appro ximately 60%. 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 T he patient was kept 1 additional night. The following morning, he denied any neurological symptoms o r chest discomfort. His neuro exam was within normal limits. His device was interrogated the mornin g of discharge, and no tachyarrhythmias were identified. His device was working properly. PHYSICAL EXAMINATION: GENERAL: The patient appears in no acute distress. VITAL SIGNS: Blood press ure 111/86, heart rate 64, oxygen saturation 96% on room air, afebrile. CARDIAC: Regular rate and r hythm. CHEST WALL: His pacer site is clean and intact without any evidence of infection or hematoma . EXTREMITIES: No edema. DISCHARGE MEDICATIONS: His medications are unchanged. He will continue lisinopril 20 mg at bedtime, herbal supplement daily, Lipitor 20 mg daily, Plavix 75 mg daily, aspirin 81 mg daily, nitroglycerin p.r.n. for chest pain. PLAN: The patient is currently stable and ready for discharge home. He has been given pacer precaut ions. He will follow up as scheduled for a wound check and pacer interrogation on April 07 at 11 a .m. He likely had a vasovagal event but TIA cannot be ruled out. He will continue anti-platelet the rapy with Plavix and aspirin. He will also remain on statin therapy for carotid and coronary disease . His LDL is elevated at 96. Titration of his Lipitor will be discussed at his next office visit. Greater than 30 minutes was spent coordinating the patient's care and plan today. /[id number]/MODL
[2017-03-26 13:46] VITALS: BP 132/72; PULSE 78; O2SAT 97
--- NOTE | 2017-03-26 16:00 | ECHO ---
[email or web address] [address] [address] Main: [phone] Fax: [email or web address] Echocardiogram Name: TALA DERAS MR#: [id number] Study Date: 03/26/2017 Study Time: 09:02 AM Date of : 1935 Age: 81 year(s) Height: 182.9 cm (72 in.) Weight: 74.39 kg (164 lb.) BSA: 1.96 m2 Gender: Male Examination: Echo Indication: Post pacemaker, TIA Image Quality: Contrast: Requested by: Debbi Wellington BP: 151 mmHg/84 mmHg Heart Rate: Rhythm: Pacemaker rhythm Indication: Post pacemaker, TIA Procedure Staff Ear Nose And Throat Specialist: Ernie Rogers Reading Physician: Patricio Christine Requesting Provider: Conclusions: Normal size left ventricle. Normal global systolic LV function. EF is 65 %. Trivial mitral valve regurgitation. Measurements: Chambers Valvular Assessment AV/MV Valvular Assessment TV/PV Normal Normal Normal Name Value Range Name Value Range Name Value Range Ao Goldie (MM): 4.0 cm (2.2 cm-3.7 AV Vmax: 0.80 m/s (1 m/s-1.7 TR Vmax: 2.63 mm/s ( - ) cm) m/s) TR PGmax: 28 mmHg ( - ) IVSd (2D): 0.8 cm (0.6 cm-1.1 AV maxP mmHg ( - ) syst. PAP: 33 mmHg ( - ) cm) LVOT Vmax: 0.76 m/s (0.7 m/s-1.1 PV Vmax: 0.65 m/s (0.6 m/s-0.9 LVDd (2D): 3.8 cm (4.2 cm-5.9 m/s) m/s) cm) NELIA (Vmax): 3.0 cm2 ( - ) PV PGmax: 2 mmHg ( - ) LVDs (2D): 2.4 cm (2.1 cm-4 MV E Vmax: 0.65 m/s ( - ) cm) MV A Vmax: 0.38 m/s ( - ) LVPWd (2D): 1.2 cm (0.6 cm-1 MV E/A: 1.71 ( - ) cm) LVOTd 2.0 cm 2.0 cm mm LVEF (2D): 65 (>=54 %) Continued Measurements: Valvular Assessment TV/PV Name Value CVP (est.): 5 mmHg Patient: TALA DERAS Study Date: 03/26/2017 Page 1 of 2 09:02 AM Findings: Left Ventricle: Normal size left ventricle. No LV hypertrophy. Normal global systolic LV function. EF is 65 %. No regional wall motion abnormality. Right Ventricle: Normal size right ventricle. Normal RV function. There is a pacemaker lead noted in the right ventricle. Left Atrium: The left atrium is normal in size. Right Atrium: The right atrium is normal in size. Mitral Valve: The mitral valve is normal in appearance and function. Trivial mitral valve regurgitation. Aortic Valve: Mild aortic cusp calcification is noted. No aortic valve stenosis is present. Tricuspid Valve: The tricuspid valve is normal in appearance and function. There is no tricuspid valve regurgitation. Pulmonic Valve: The pulmonic valve is normal in appearance and function. Aorta: The aorta is normal. Pericardium: No pericardial effusion. Exam Comments: Echo images were performed from the subcostal view due to low heart window.. (No Signature Object) Patient: TALA DERAS Study Date: 03/26/2017 Page 2 of 2 09:02 AM [id number]
== END 2017-03-26 11:42 | disposition home or self-care (01) ==
LOC: FCATH 06:28 → F2W 18:25 → F2N 19:01
PROVIDERS: ADMIT Internal Medicine Interventional Cardiology; ATTEND Physician Assistant
PROC: 02HK3JZ Insertion of Pacemaker Lead into Right Ventricle, Percutaneous Approach (ICD-10-PCS; principal; 2017-03-25)
PROC: 0JH606Z Insertion of Pacemaker, Dual Chamber into Chest Subcutaneous Tissue and Fascia, Open Approach (ICD-10-PCS; principal; 2017-03-25)
PROC: 02H63JZ Insertion of Pacemaker Lead into Right Atrium, Percutaneous Approach (ICD-10-PCS; principal; 2017-03-25)
DX: I44.1 Atrioventricular block, second degree (principal); R53.83 Other fatigue; R55 Syncope and collapse; I65.23 Occlusion and stenosis of bilateral carotid arteries; I25.10 Atherosclerotic heart disease of native coronary artery without angina pectoris; E78.5 Hyperlipidemia, unspecified; I10 Essential (primary) hypertension; E03.9 Hypothyroidism, unspecified; Z79.02 Long term (current) use of antithrombotics/antiplatelets; Z85.828 Personal history of other malignant neoplasm of skin; Z87.891 Personal history of nicotine dependence; Z87.442 Personal history of urinary calculi; Z86.010 Personal history of colon polyps; Z82.49 Family history of ischemic heart disease and other diseases of the circulatory system; Z95.5 Presence of coronary angioplasty implant and graft
CPT/HCPCS: 33208; 70450; 70496; 70498; 71010; 71020; 75860; 93005; 93306; 97161; 97166; C1785; C1898; G8978; G8979; G8980; G8987; G8988; G8989; J0690; J2250; J3010; Q9967

== ENCOUNTER 2017-03-28 18:32 | Emergency (ER) | payer OTHER ==
--- NOTE | 2017-03-28 19:14 | EDPHY ---
H & P Time Seen by Provider: 03/28/17 19:02 HPI/ROS: CHIEF COMPLAINT: Constipation, inability to urinate HISTORY OF PRESENT ILLNESS: The patient is an 81 y/o male, 10 days post-op from a cardiac pacemaker, complaining of constipation and inability to urinate. Last normal bowel movement was several days ago. Having difficulty having a bowel since then. Onset of difficulty urinating this morning, associated with suprapubic discomfort. No medications tried for constipation. No prior history of urinary retention. Denies abdominal pain, chest pain, fever, paresthesias or other pertinent symptoms. REVIEW OF SYSTEMS: Aside from elements discussed in the HPI, a comprehensive 10-point review of systems was reviewed and is negative. Past Medical/Surgical History: PMH: Colonic polyps, coronary arthrosclerosis, hypertension, kidney stones, leukocytopenia PSH: Cardiac pacemaker 10 days ago, coronary stent, appendectomy Social History: at bedside, lives in [place], retired Smoking Status: Never smoked Physical Exam: General Appearance: Alert, appears in pain Eyes: Pupils equal and round, no conjunctival pallor or injection ENT, Mouth: Mucous membranes moist Neck: Normal inspection Respiratory: Lungs are clear to auscultation Cardiovascular: Regular rate and rhythm Gastrointestinal: Abdomen is soft, suprapubic tenderness Rectal: Brown stool, no fecal impaction Neurological: A&O, nonfocal, normal gait Skin: Warm and dry, no rash Extremities: Normal inspection Psychiatric: Mood and affect normal Constitutional: Initial Vital Signs Temperature (C) 36.7 C 03/28/17 18:44 Heart Rate 102 H 03/28/17 18:44 Respiratory Rate 22 H 03/28/17 18:44 Blood Pressure 163/98 H 03/28/17 18:44 O2 Sat (%) 93 03/28/17 18:44 O2 Delivery Mode Room Air Allergies/Adverse Reactions: No Known Allergies Allergy (Unverified 10/31/16 13:35) Home Medications: Medication Instructions Recorded Atorvastatin Calcium [Lipitor 20 20 mg PO HS 10/31/16 mg (*)] Herbals/Supplements -Info Only 1 ea PO DAILY 10/31/16 Lisinopril [Zestril 20 mg (*)] 20 mg PO HS 10/31/16 Aspirin [Aspirin 81mg (*)] 81 mg PO HS 03/20/17 Clopidogrel Bisulfate [Plavix (*)] 75 mg PO HS 03/20/17 Nitroglycerin [Nitrostat 0.4 mg 0.4 mg SL ONCE PRN 03/20/17 (*)] Medical Decision Making ED Course/Re-evaluation: The patient is an 81 y/o male, 10 days post-op from a cardiac pacemaker placement, presenting with constipation and inability to urinate. Patient will have a soap suds enema. 1955: Reassessed patient, he is able to have a moderate bowel movement after his enema. Feels better. 2004: Patient's bladder scan: 673mL. Able to urinate twice. 2022: Reassessed patient, he is no longer in pain. He still has the slight urge to urinate. 2099: Symptoms have resolved. Abdomen is soft and nontender. Return precautions provided; patient and his are comfortable with this plan. - Data Points Medications Given: Discontinued Medications Magnesium Citrate (Magnesium Citrate) 300 ml PO EDNOW ONE Stop: 03/28/17 20:26 Last Admin: 03/28/17 20:40 Dose: 1 btl Departure - Departure Disposition: Home, Routine, Self-Care Clinical Impression: Urinary retention Constipation Qualifiers: Constipation type: slow transit constipation Qualified Code(s): K59.01 - Slow transit constipation Condition: Good Instructions: Constipation (ED) Additional Instructions: Take magnesium citrate as prescribed. Follow up with your primary care provider in the next week for unimproved symptoms. Return to the ED if you experience abdominal pain, inability to urinate, vomiting, changes in bowel movements, fever or other pertinent symptoms. Referrals: Beltran Clark MD [Primary Care Provider] - As per Instructions Stand Alone Forms: Airline Excuse Report Scribed for: Veena Clifford Report Scribed by: Promise Simons Date of Report: 03/28/17 Time of Report: 19:13 Physician Review and Approval Statement: 03/28/17 19:14 Portions of this note were transcribed by a medical safety director. I personally performed a history, physical exam, medical decision making, and confirmed accuracy of information the transcribed note.
[2017-03-28] MEDS ORDERED: MAGNESIUM CITRATE 300 ML BOTTLE PO ONE (20:25)
[2017-03-28 21:14] VITALS: BP 156/87; PULSE 77; RESP 20; TEMP 98.8; O2SAT 94
== END 2017-03-28 22:08 | disposition home or self-care (01) ==
DX: K59.01 Slow transit constipation (principal); R33.9 Retention of urine, unspecified; I10 Essential (primary) hypertension; Z95.0 Presence of cardiac pacemaker; Z79.82 Long term (current) use of aspirin; Z95.5 Presence of coronary angioplasty implant and graft

== ENCOUNTER 2017-03-30 02:33 | Observation (INO) | payer OTHER ==
--- NOTE | 2017-03-30 02:54 | CPEKG ---
Heart Rate: 64 RR Interval: 938 P-R Interval: 180 QRSD Interval: 134 QT Interval: 440 QTC Interval: 454 P [place]: 0 QRS [place]: -86 T Wave [place]: 83 EKG Severity - ABNORMAL ECG - EKG Impression: VENTRICULAR-PACED COMPLEXES EKG Impression: NONSPECIFIC IVCD WITH LAD Electronically Signed By: Mary Da Silva 31-Mar-2017 07:00:55
[2017-03-30 03:06] LABS: PLATELET COUNT 147 10^3/uL (150-400)
--- NOTE | 2017-03-30 03:17 | EDPHY ---
H & P Stated Complaint: Chest pain/pressure Time Seen by Provider: 03/30/17 02:48 HPI/ROS: HPI The patient presents with chest pressure which he initially noticed and was mild before going to bed last night. He awoke about 1 hour prior to presentation with worsening chest pressure. He feels it throughout his anterior chest, does not radiate, it is mild in severity. It is worse when he sits forward or takes a deep breath. He has no associated nausea, vomiting, dizziness, diaphoresis. He has had dyspnea on exertion when he walks up 1 flight of stairs in his home, this is been present for the last 1 week since he had a pacemaker placed. He had a visit to the emergency room a few days ago for constipation. His symptoms of constipation have improved. He has no prior history of similar pain.. REVIEW OF SYSTEMS Constitutional: No fever, no chills. Eyes: No discharge. ENT: No sore throat. Cardiovascular: See HPI Respiratory: No cough, no shortness of breath. Gastrointestinal: No abdominal pain, no vomiting. Genitourinary: No hematuria. Musculoskeletal: No back pain. Skin: No rashes. Neurological: No headache. PMHx: CAD with LAD stent in place, recent pacemaker placement Soc Hx: Housed with his PHYSICAL General Appearance: Alert, no distress Eyes: Pupils equal and round no pallor or injection ENT, Mouth: Mucous membranes moist Chest wall: Surgical site dressing is clean dry and intact, there is surrounding ecchymoses Respiratory: There are no retractions, lungs are clear to auscultation Cardiovascular: Regular rate and rhythm Gastrointestinal: Abdomen is soft and non-tender, no masses, bowel sounds normal Neurological: A&O, moves all extremities Skin: Warm and dry, no rashes Musculoskeletal: Neck is supple non tender Extremities: symmetrical, full range of motion Psychiatric: Patient is oriented X 3, there is no agitation Source: Patient Exam Limitations: No limitations - Personal History Current Tetanus/Diphtheria Vaccine: Unsure Current Tetanus Diphtheria and Acellular Pertussis (TDAP): Unsure - Medical/Surgical History Hx Asthma: No Hx Chronic Respiratory Disease: No Hx Diabetes: No Hx Cardiac Disease: Yes Hx Renal Disease: No Hx Cirrhosis: No Hx Alcoholism: No Hx HIV/AIDS: No Hx Splenectomy or Spleen Trauma: No Other PMH: colonic polyps; coronary arthrosclerosis with stent 2004, elevated PSA, HTN, kidney stones, leukocytopenia, thrombophlebitis of saphenous right vein, appendectomy, - Social History Smoking Status: Never smoked Constitutional: Initial Vital Signs Temperature (C) 36.3 C 03/30/17 02:38 Heart Rate 64 03/30/17 02:38 Respiratory Rate 14 03/30/17 02:38 Blood Pressure 141/83 H 03/30/17 02:38 O2 Sat (%) 96 03/30/17 02:38 O2 Delivery Mode Room Air Allergies/Adverse Reactions: No Known Allergies Allergy (Unverified 10/31/16 13:35) Home Medications: Medication Instructions Recorded Atorvastatin Calcium [Lipitor 20 20 mg PO HS 10/31/16 mg (*)] Herbals/Supplements -Info Only 1 ea PO DAILY 10/31/16 Lisinopril [Zestril 20 mg (*)] 20 mg PO HS 10/31/16 Aspirin [Aspirin 81mg (*)] 81 mg PO HS 03/20/17 Clopidogrel Bisulfate [Plavix (*)] 75 mg PO HS 03/20/17 Medical Decision Making - Diagnostics EKG Interpretation: EKG: Complete interpretation has been separately recorded in the [facility] archive. Summary impression: Ventricular paced rhythm Imaging Results: Chest x-ray two view demonstrates pacer in place, no cardiomegaly, no effusion, interpreted by me, radiology interpretation is pending. CT scan of chest PE protocol demonstrates no pulmonary embolism, discussed with Dr. Avelar of Radiology. Differential Diagnosis: 81-year-old man, history of CAD status post LAD stent, recent cardiac pacemaker placed presents with chest pressure which has been present for the last several hours and awoke him from sleep. Pain is pressure like, throughout his chest, worse when he leans forward. On exam, he is generally well-appearing. Vital signs are unremarkable. In the emergency department, labs were checked and were unremarkable, EKG showed a paced rhythm. Chest x-ray was normal. D-dimer was added on and was elevated, thus CT scan of chest was performed and was unremarkable for PE. Given the patient has a history of CAD and chest pressure, I feel he should be monitored for repeat troponin and further testing if needed. I have discussed the case with the hospitalist Dr. Lang. Differential diagnosis considered includes ACS, PE, pericarditis, pleurisy. - Data Points Laboratory Results: Laboratory Results 03/30/17 03:00 03/30/17 03:00 03/30/17 03/30/17 03/30/17 04:00 03:00 03:00 WBC 5.57 10^3/uL 10^3/uL (3.80-9.50) RBC 4.16 10^6/uL L 10^6/uL (4.40-6.38) Hgb 14.2 g/dL g/dL (13.7-17.5) Hct 39.9 % L % (40.0-51.0) MCV 95.9 fL fL (81.5-99.8) MCH 34.1 pg pg (27.9-34.1) MCHC 35.6 g/dL g/dL (32.4-36.7) RDW 13.0 % % (11.5-15.2) Plt Count 147 10^3/uL L 10^3/uL (150-400) MPV 10.3 fL fL (8.7-11.7) Neut % (Auto) 61.9 % % (39.3-74.2) Lymph % (Auto) 21.0 % % (15.0-45.0) Towner % (Auto) 13.1 % H % (4.5-13.0) Eos % (Auto) 2.9 % % (0.6-7.6) Baso % (Auto) 0.9 % % (0.3-1.7) Nucleat RBC Rel Count 0.0 % % (0.0-0.2) Absolute Neuts (auto) 3.45 10^3/uL 10^3/uL (1.70-6.50) Absolute Lymphs (auto) 1.17 10^3/uL 10^3/uL (1.00-3.00) Absolute Monos (auto) 0.73 10^3/uL 10^3/uL (0.30-0.80) Absolute Eos (auto) 0.16 10^3/uL 10^3/uL (0.03-0.40) Absolute Basos (auto) 0.05 10^3/uL 10^3/uL (0.02-0.10) Absolute Nucleated RBC 0.00 10^3/uL 10^3/uL (0-0.01) Immature Gran % 0.2 % % (0.0-1.1) Immature Gran # 0.01 10^3/uL 10^3/uL (0.00-0.10) D-Dimer 7.18 ug/mLFEU H ug/mLFEU (0.00-0.50) Sodium 139 mEq/L mEq/L (134-144) Potassium 4.5 mEq/L mEq/L (3.5-5.2) Chloride 105 mEq/L mEq/L (97-110) Carbon Dioxide 24 mEq/l mEq/l (22-31) Anion Gap 10 mEq/L mEq/L (8-16) BUN 20 mg/dL mg/dL (7-23) Creatinine 1.0 mg/dL mg/dL (0.7-1.3) Estimated GFR > 60 Glucose 100 mg/dL mg/dL (70-100) Calcium 9.1 mg/dL mg/dL (8.5-10.4) Troponin I 0.026 ng/mL ng/mL (0.000-0.034) Departure - Departure Disposition: [facility] Inpatient Acute Clinical Impression: Chest pain Qualifiers: Chest pain type: unspecified Qualified Code(s): R07.9 - Chest pain, unspecified Condition: Fair
[2017-03-30] MEDS ORDERED: ACETAMINOPHEN 325 MG TAB PO PRN (04:20)
[2017-03-30] MEDS ORDERED: ONDANSETRON DISINTEGRATING 4 MG TAB PO PRN (04:20)
[2017-03-30] MEDS ORDERED: ONDANSETRON 4 MG/2 ML VIAL IVP PRN (04:20)
[2017-03-30] MEDS ORDERED: IOPAMIDOL (ISOVUE 370) 100 ML BTL IV ONE (04:49)
--- NOTE | 2017-03-30 05:50 | PDGENHP ---
History and Physical - Chief Complaint Chest discomfort - History of Present Illness 81 yo M w/ hx of CAD and stents placed 11/16 as well as 2nd degree AV block s/p recent PPM(03/26) presents with chest discomfort. Patient noticed central chest pressure before going to bed. He says this was mild to moderate with no associated symptoms. The pain resolved and he was able to go to bed. Then later in the night the pain woke him from sleep and he decided to come to the ED. He notes that the pain is positional, changing in character when he leans forward. Additionally, he feels like he cannot take a full inspiration. History Information - Allergies/Home Medication List Allergies/Adverse Reactions: No Known Allergies Allergy (Unverified 10/31/16 13:35) Home Medications: Atorvastatin Calcium [Lipitor 20 mg (*)] 20 mg PO HS 10/31/16 [Last Taken 18:00] Herbals/Supplements -Info Only 1 ea PO DAILY 10/31/16 [Last Taken 11/05/16] Lisinopril [Zestril 20 mg (*)] 20 mg PO HS 10/31/16 [Last Taken 11/05/16 18:00] Aspirin [Aspirin 81mg (*)] 81 mg PO HS 03/20/17 [Last Taken Unknown] Clopidogrel Bisulfate [Plavix (*)] 75 mg PO HS 03/20/17 [Last Taken Unknown] I have personally reviewed and updated: family history, medical history - Past Medical History coronary artery disease (Stent to LAD placed in October of 2016) - Surgical History Reports: pacemaker/AICD (Placed 03/[address] Clark) - Family History Positive for: CAD - Social History Smoking Status: Never smoked Review of Systems Review of Systems: ROS: 10pt was reviewed & negative except for what was stated in HPI & below Physical Exam Physical Exam: Temp Pulse Resp BP Pulse Ox 36.3 C 60 14 145/82 H 96 03/30/17 02:38 03/30/17 04:30 03/30/17 04:30 03/30/17 04:30 03/30/17 04:30 Constitutional: no apparent distress, appears nourished Eyes: PERRL, EOMI Ears, Nose, Mouth, Throat: moist mucous membranes, no oral mucosal ulcers Cardiovascular: regular rate and rhythym, systolic murmur, No edema Respiratory: no respiratory distress, no rales or rhonchi Gastrointestinal: normoactive bowel sounds, soft, non-tender abdomen Skin: warm, normal color Musculoskeletal: full muscle strength, no muscle tenderness Neurologic: AAOx3, CN II-XII Intact Psychiatric: interacting appropriately, not anxious Lab Data & Imaging Review 03/30/17 03:00 03/30/17 03:00 WBC 5.57 10^3/uL (3.80-9.50) 03/30/17 03:00 RBC 4.16 10^6/uL (4.40-6.38) L 03/30/17 03:00 Hgb 14.2 g/dL (13.7-17.5) 03/30/17 03:00 Hct 39.9 % (40.0-51.0) L 03/30/17 03:00 MCV 95.9 fL (81.5-99.8) 03/30/17 03:00 MCH 34.1 pg (27.9-34.1) 03/30/17 03:00 MCHC 35.6 g/dL (32.4-36.7) 03/30/17 03:00 RDW 13.0 % (11.5-15.2) 03/30/17 03:00 Plt Count 147 10^3/uL (150-400) L 03/30/17 03:00 MPV 10.3 fL (8.7-11.7) 03/30/17 03:00 Neut % (Auto) 61.9 % (39.3-74.2) 03/30/17 03:00 Lymph % (Auto) 21.0 % (15.0-45.0) 03/30/17 03:00 Mcdonald % (Auto) 13.1 % (4.5-13.0) H 03/30/17 03:00 Eos % (Auto) 2.9 % (0.6-7.6) 03/30/17 03:00 Baso % (Auto) 0.9 % (0.3-1.7) 03/30/17 03:00 Nucleat RBC Rel Count 0.0 % (0.0-0.2) 03/30/17 03:00 Absolute Neuts (auto) 3.45 10^3/uL (1.70-6.50) 03/30/17 03:00 Absolute Lymphs (auto) 1.17 10^3/uL (1.00-3.00) 03/30/17 03:00 Absolute Monos (auto) 0.73 10^3/uL (0.30-0.80) 03/30/17 03:00 Absolute Eos (auto) 0.16 10^3/uL (0.03-0.40) 03/30/17 03:00 Absolute Basos (auto) 0.05 10^3/uL (0.02-0.10) 03/30/17 03:00 Absolute Nucleated RBC 0.00 10^3/uL (0-0.01) 03/30/17 03:00 Immature Gran % 0.2 % (0.0-1.1) 03/30/17 03:00 Immature Gran # 0.01 10^3/uL (0.00-0.10) 03/30/17 03:00 D-Dimer 7.18 ug/mLFEU (0.00-0.50) H 03/30/17 04:00 Sodium 139 mEq/L (134-144) 03/30/17 03:00 Potassium 4.5 mEq/L (3.5-5.2) 03/30/17 03:00 Chloride 105 mEq/L (97-110) 03/30/17 03:00 Carbon Dioxide 24 mEq/l (22-31) 03/30/17 03:00 Anion Gap 10 mEq/L (8-16) 03/30/17 03:00 BUN 20 mg/dL (7-23) 03/30/17 03:00 Creatinine 1.0 mg/dL (0.7-1.3) 03/30/17 03:00 Estimated GFR > 60 03/30/17 03:00 Glucose 100 mg/dL (70-100) 03/30/17 03:00 Calcium 9.1 mg/dL (8.5-10.4) 03/30/17 03:00 Troponin I 0.026 ng/mL (0.000-0.034) 03/30/17 03:00 Imaging Review: CTPE negative for PE. Visualized and Interpreted EKG results: Yes EKG additional interpertation: V-paced rhythm Assessment & Plan Assessment: 81 yo M w/ hx of CAD and stents placed 11/16 as well as 2nd degree AV block s/p recent PPM(03/26) presents with chest discomfort. Plan: 1. Chest Pain - Atypical for anginal pain in that pain is positional, unrelated to exertion, and woke patient from sleep. D-dimer elevated so PE ruled out with CTPE. Other consideration includes pericarditis noting recent (03/26) PPM placement. Troponin negative on admission, ECG without clear ST segment changes although V-paced. - Monitor on telemetry, trend enzymes - Cardiology consult - Pain has abated currently, if it returns and ACS ruled out, consider NSAIDs/ steroids/colchicine for pericarditis 2. CAD - s/p stents placed in October of 2016. On DAPT and statin as an outpatient. 3. HTN - Well controlled with lisinopril. 4. 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 Clark 03/26. Pacer pocket with clean, dry, intact bandage in place. Diet - NPO pending decision on risk stratification Code - Full Ppx - SCDs Dispo - Admit to PCU under observation status
[2017-03-30 08:56] VITALS: BP 154/84; TEMP 97.9; O2SAT 94
[2017-03-30] MEDS ORDERED: ENOXAPARIN 30 MG/0.3 ML SYR SC SCH (09:00)
[2017-03-30 09:15] VITALS: PULSE 63; RESP 18
--- NOTE | 2017-03-30 11:39 | PDDCSUM ---
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 D dimer elevated, CTA no e/o of P.E. Troponin negative. No events O/N. Was evaluated by Dr. Clark in the a.m. and given negative w/u and resolution of the chest pain, he has been cleared for discharge. No medications were adjusted. he will f/u with Dr. Clark. DDx: 1. Chest Pain - Atypical 2. CAD - s/p stents placed in October of 2016. On DAPT and statin as an outpatient. 3. HTN - Well controlled with lisinopril. 4. 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 Clark 03/26. Pacer pocket with clean, dry, intact bandage in place. Exam: VSS NAD AAOX3 RRR CTA B S/NT/ND f/u: per above d/c meds: see med rec. no changes were made total time spent on discharge is 35 minutes
--- NOTE | 2017-03-30 14:42 | ASDISCHSUM ---
Discharge Information Plan Status:Home with No Needs Medically Cleared to Leave:03/30/2017 Discharge Date:03/30/2017 11:51 AM CM D/C Disposition:Home, Routine, Self-Care ADT D/C Disposition:Home, Routine, Self-Care Projected Discharge Date:03/30/2017 12:00 PM Transportation at D/C:Family Discharge Delay Reason: Follow-Up Date:03/30/2017 12:00 PM Discharge Slot:2 - 12:01 pm - 18:00 pm Final Diagnosis:CP, 2nd degree AV block Placement Information Patient Contact Information Contact Name:HARISH Relationship: Address:[address] Work Phone: City:[place] Alternate Phone: State/Zip Code:[place] [address] Email: Financial Information Financial Class: Primary Plan Desc:MEDICARE OUTPATIENT Primary Plan Number:[id number] Secondary Plan Desc:[facility] Secondary Plan Number:[id number] Assessment Information [facility] CM Progress Note CM Note CM Note Notes: 81 year old male admitted for CP, had a negative cardiac work-up, no longer symptomatic and discharged home with his . Patient has a hx of CAD w/stents to LAD, recent AV block s/p PPM. Will f/u w/Painter Supervisor. No other discharge needs. Date Signed: 03/30/2017 02:41 PM Electronically Signed By:Kelly Maynard LCSW Intervention Information
--- NOTE | 2017-03-30 14:42 | ASDISCHSUM ---
Discharge Information Plan Status:Home with No Needs Medically Cleared to Leave:03/30/2017 Discharge Date:03/30/2017 11:51 AM CM D/C Disposition:Home, Routine, Self-Care ADT D/C Disposition:Home, Routine, Self-Care Projected Discharge Date:03/30/2017 12:00 PM Transportation at D/C:Family Discharge Delay Reason: Follow-Up Date:03/30/2017 12:00 PM Discharge Slot:2 - 12:01 pm - 18:00 pm Final Diagnosis:CP, 2nd degree AV block Placement Information Patient Contact Information Contact Name:HARISH Relationship: Address:[address] Work Phone: City:[place] Alternate Phone: State/Zip Code:[place] [address] Email: Financial Information Financial Class: Primary Plan Desc:MEDICARE OUTPATIENT Primary Plan Number:[id number] Secondary Plan Desc:[facility] Secondary Plan Number:[id number] Assessment Information [facility] CM Progress Note CM Note CM Note Notes: 81 year old male admitted for CP, had a negative cardiac work-up, no longer symptomatic and discharged home with his . Patient has a hx of CAD w/stents to LAD, recent AV block s/p PPM. Will f/u w/Patient Relations Manager. No other discharge needs. Date Signed: 03/30/2017 02:41 PM Electronically Signed By:Kelly Maynard LCSW Intervention Information
--- NOTE | 2017-03-30 14:42 | ASDISCHSUM ---
Discharge Information Plan Status:Home with No Needs Medically Cleared to Leave:03/30/2017 Discharge Date:03/30/2017 11:51 AM CM D/C Disposition:Home, Routine, Self-Care ADT D/C Disposition:Home, Routine, Self-Care Projected Discharge Date:03/30/2017 12:00 PM Transportation at D/C:Family Discharge Delay Reason: Follow-Up Date:03/30/2017 12:00 PM Discharge Slot:2 - 12:01 pm - 18:00 pm Final Diagnosis:CP, 2nd degree AV block Placement Information Patient Contact Information Contact Name:HARISH Relationship: Address:[address] Work Phone: City:[place] Alternate Phone: State/Zip Code:[place] [address] Email: Financial Information Financial Class: Primary Plan Desc:MEDICARE OUTPATIENT Primary Plan Number:[id number] Secondary Plan Desc:[facility] Secondary Plan Number:[id number] Assessment Information [facility] CM Progress Note CM Note CM Note Notes: 81 year old male admitted for CP, had a negative cardiac work-up, no longer symptomatic and discharged home with his . Patient has a hx of CAD w/stents to LAD, recent AV block s/p PPM. Will f/u w/Student Life Coordinator. No other discharge needs. Date Signed: 03/30/2017 02:41 PM Electronically Signed By:Kelly Maynard LCSW Intervention Information
--- NOTE | 2017-03-30 14:46 | GCON ---
[f rep st] CONSULTATION CARDIOLOGY CONSULTATION DATE OF CONSULTATION: 03/30/2017 REFERRING PHYSICIAN: Zander Toledo MD TIME SEEN: 10:41 a.m. HISTORY OF PRESENT ILLNESS: I am asked today by Dr. Toledo to visit with this patient. He is 81 years old. He is well known to me. I put a permanent pacemaker in him on Friday of last week in the setting of second-degree heart block with symptomatic fatigue. He tolerated the procedure well. Post operatively, he had a vasovagal event and was observed overnight. He has done well since that time. Y , he awoke with a vague pressure in the middle of his chest. He went back to sleep and it wok e him again. He came into the emergency room for further evaluation. He is pain-free, back to his usu al state of good health. Since putting the pacemaker in, the patient has had some exertional shortnes s of breath when going up stairs. He has known coronary artery disease with history of PCI. He has be en off antiplatelet therapy during this time period. The patient had no radiation of discomfort to th e jaw. He had no radiation to the shoulder. He does have chronic back pain, which may be contributing some. He has had no nausea or vomiting. He did have an episode of constipation, which he attributed to the medications during the procedure. On my arrival this morning, he is back to his usual state of good health, anxious to go home. He denies chest pain. He has no shortness of breath at rest. He den ies PND or orthopnea. He has had no palpitations, syncope or near-syncope. With position, he has no p ounding of the chest. He was unable to recreate any discomfort. General review of systems has been ne gative for fever or chills. He has had, again, no dysphagia. He has had no abdominal pain, diarrhea, constipation, dysuria, bruising or bleeding. His incision has been healing well, without discomfort. MEDICATIONS: His outpatient medications include herbal supplements. He is on Plavix 75 mg a day. He is on 20 mg of Lipitor. He is on 81 mg a day of aspirin. He is on 20 mg a day of lisinopril. ALLERGIES: None. PAST MEDICAL HISTORY: Again, heart block, status post permanent pacemaker; coronary artery disease, status post PCI. He has history of urinary retention. SOCIAL HISTORY: Nonsmoker. No significant alcohol. Accompanied by his . He is preparing to [employer] for [employer] party tomorrow night. REVIEW OF SYSTEMS: GENERAL: He has had no weight loss, weight gain. No fever or chills. LUNGS: No sh ortness of breath, cough, hemoptysis. GI: No abdominal pain. No diarrhea. Constipation as described a panfilo. : No dysuria. PHYSICAL EXAMINATION: VITAL SIGNS: On my arrival, his blood pressure is 150/84. His current heart ra te is 60. Respiratory rate is 14. He is saturating 94% on room air. GENERAL: He is a well-nourished, well-developed male. He is in no distress. HEENT: No xanthelasma. No conjunctival injection. Orophary nx is clear. NECK: Supple, without JVP. CHEST: Clear to auscultation and percussion. Palpation of ant erior chest wall reveals a pacemaker in the left subclavian fossa. There is no significant ecchymosis , erythema or edema. He has a regular rate and rhythm. With palpation of the chest, I cannot feel any diaphragmatic activation, no phrenic activation. ABDOMEN: Soft, nontender, with good bowel sounds. H e has no organomegaly. EXTREMITIES: Free of edema. There is no clubbing or cyanosis. Femoral pulses a re +2. NEUROLOGIC: He is alert and oriented, with normal mood and affect. There is no facial droop. S KIN: Warm and dry, without rash. DATABASE: EKG shows AV sequential pacing. Chest x-ray shows leads in appropriate position. CT scan of the chest ruled out pulmonary embolic disease. No evidence of perforation of the lead. His white count is 5.57. His hemoglobin is 14.2 with a hematocrit of 39.9. His platelet count is 147. His D-dimer was elevated at 7.18. His serum sodium was 139 with potassium 4.5. His troponins were 0. 026 and 0.016. His creatinine is 1. Chest x-ray revealed no pneumothorax, with leads in appropriate position. IMPRESSION: The patient is an 81-year-old male, status post permanent pacemaker last week. His incis ion is healing well, without evidence of infection. Device is working well by telemetry and most rece nt interrogation. There is no pneumothorax as a complication of device. The possibility of a microper foration exists with his atypical positional discomfort, though again this has resolved completely at this point and cannot be reproduced with standard position changes. His hemodynamics are stable, wit hout evidence of hemodynamic compromise. At this point, recommendations are for discharge from the [facility]. There is no evidence of acute coronary syndrome based on clinical history, his troponins are flat, and he has been ruled out for pulmonary embolic disease. At this point, we will follow him up c linically. We will plan for discharge. I have advised him to stay in town, though he is considering [place]ing [place] despite this. We will have his pacemaker interrogated at the middle of this week. Qu estions were answered with him and his . I think at this point, with stable hemodynamics and stab le vital signs, he is safe for discharge. We will follow him up as outlined above. /[id number]/MODL
== END 2017-03-30 11:51 | disposition home or self-care (01) ==
LOC: F2W 07:49
PROVIDERS: ADMIT Student in an Organized Health Care Education/Training Program; ATTEND Student in an Organized Health Care Education/Training Program
CPT/HCPCS: 71020; 71275; 93005; G0378; Q9967

== ENCOUNTER → 2018-02-13 | Outpatient (CLI) | payer OTHER | LOC: FIMAGING 08:47 | PROVIDERS: ATTEND Urology | PROC: CP1Z1ZZ Planar Nuclear Medicine Imaging of Musculoskeletal System, All using Technetium 99m (Tc-99m) (ICD-10-PCS; principal; 2018-02-13) | DX: Z12.9 Encounter for screening for malignant neoplasm, site unspecified (principal); C61 Malignant neoplasm of prostate | CPT/HCPCS: 78306; A9503 ==

== ENCOUNTER → 2018-02-23 | Outpatient (CLI) | payer OTHER ==
[~2018-02-23] MED LIST: IOPAMIDOL (ISOVUE-300) 100 ML BTL ONE
== END ==
LOC: FIMAGING 09:45
PROVIDERS: ATTEND Urology
DX: C61 Malignant neoplasm of prostate (principal); K76.89 Other specified diseases of liver
CPT/HCPCS: 74177; Q9967; 82565-PO